=== PATIENT | female | born 1980 | race Caucasian/White ===

== ENCOUNTER 2017-05-01 15:19 | Emergency (ER) | payer OTHER ==
[~2017-05-01] VITALS: Ht 175.3 cm; Wt 158.8 kg
[~2017-05-01 15:19] MED LIST: CEPH500 PO; CRUTCH2 USE; Cyclobenzaprine5 MG PO; FLUC100 PO; HYDACE5 PO; IBUP800 PO; Norco 5-325 Ta1 EACH PO; RXHYDACE PO; SULTRIDS PO; TRAM50 PO
[2017-05-01] MEDS ORDERED: Percocet 5-3251 EACH PO (17:17)
[2017-05-01] MEDS ORDERED: Bactrim Ds Tab1 EACH PO (17:17)
[2017-05-01] MEDS ORDERED: Cyclobenzaprine5 MG PO (17:17)
== END 2017-05-01 17:29 | disposition home or self-care (01) ==
LOC: ER 15:19
DX: M54.5 Low back pain (principal); L03.113 Cellulitis of right upper limb; M25.521 Pain in right elbow; F17.210 Nicotine dependence, cigarettes, uncomplicated; W10.9XXA Fall (on) (from) unspecified stairs and steps, initial encounter
CPT/HCPCS: 72100; 73070; 81025; 99283

== ENCOUNTER → 2017-07-29 | Outpatient (CLI) | payer OTHER ==
[~2017-07-29] MED LIST changes: +Bactrim Ds Tab1 EACH PO; +Percocet 5-3251 EACH PO
== END | disposition home or self-care (01) ==
LOC: LAB EV 11:36 → LAB SHORT 11:36
DX: Z33.1 Pregnant state, incidental (principal)
CPT/HCPCS: 84702

== ENCOUNTER → 2017-08-04 | Outpatient (CLI) | payer OTHER ==
[2017-08-04 16:54] LABS: Alanine Aminotransfer (ALT/SGP 19 U/L (12-78); Albumin, Blood 3.7 g/dL (3.4-5.0); Albumin/Globulin Ratio 1.1 (0.8-1.8); Alk Phos 57 U/L (50-136); Anion Gap 9 mmol/L (6-16); Aspartate Aminotrans (AST/SGOT 7 U/L (12-37); Bilirubin, Total 0.3 mg/dL (0.1-1.0); Blood Urea Nitrogen 8 mg/dL (8-24); Bun/Creatinine Ratio 14.4 (12.0-20.0); CO2, Blood 22 mmol/L (21-32); Calcium, Blood 8.7 mg/dL (8.5-10.1); Chloride, Blood 109 mmol/L (98-108); Creatinine, Blood 0.56 mg/dL (0.40-1.00); Globulin, Blood 3.5 g/dL (2.2-4.0); Glomerular Filtration Rate >60 (60-); Glucose, Blood 181 mg/dL (70-99); Sodium, Blood 140 mmol/L (136-145); Total Protein, Blood 7.2 g/dL (6.4-8.2)
[2017-08-04 17:06] LABS: Beta HCG, Quantitative, Serum 2520 mIU/mL (0-3)
== END ==
LOC: LAB SHORT 14:09 → LAB 14:09
PROVIDERS: Obstetrics & Gynecology
DX: O09.90 Supervision of high risk pregnancy, unspecified, unspecified trimester (principal); I10 Essential (primary) hypertension; E11.9 Type 2 diabetes mellitus without complications; Z33.1 Pregnant state, incidental
CPT/HCPCS: 80053; 83036; 84443; 84702

== ENCOUNTER 2017-09-30 15:26 | Emergency (ER) | payer OTHER ==
[~2017-09-30] VITALS: Ht 175.3 cm; Wt 137.4 kg
[2017-09-30] MEDS ORDERED: IBUP600 PO (17:08)
[2017-09-30] MEDS ORDERED: Bactrim Ds Tab1 EACH PO (17:08)
[2017-09-30] MEDS ORDERED: HYDR1TAB94 PO (17:08)
== END 2017-09-30 17:38 | disposition home or self-care (01) ==
LOC: ER 15:26
DX: S63.501A Unspecified sprain of right wrist, initial encounter (principal); L03.116 Cellulitis of left lower limb; X58.XXXA Exposure to other specified factors, initial encounter; F17.210 Nicotine dependence, cigarettes, uncomplicated
CPT/HCPCS: 29125; 73130; 99283-25

== ENCOUNTER → 2019-04-11 | Outpatient (CLI) | payer OTHER ==
[~2019-04-11] MED LIST changes: +HYDR1TAB94 PO; +IBUP600 PO
[2019-04-12 09:51] LABS: Candida species (DNA Probe) Negative (NEGATIVE); G. vaginalis (DNA Probe) Positive (NEGATIVE); T. vaginalis (DNA Probe) Negative (NEGATIVE)
[2019-04-13 15:09] LABS: HPV 16 Negative (Negative); HPV 18 Negative (Negative); HPV OTHER HR TYPES Negative (Negative)
== END | disposition home or self-care (01) ==
LOC: LAB 10:30 → LAB SHORT 10:30
PROVIDERS: Obstetrics & Gynecology
DX: Z01.419 Encounter for gynecological examination (general) (routine) without abnormal findings (principal); L29.3 Anogenital pruritus, unspecified
CPT/HCPCS: 87480; 87510; 87624; 87660; G0123

== ENCOUNTER → 2019-11-01 | Outpatient (CLI) | payer OTHER ==
[2019-11-02 09:58] LABS: Candida species (DNA Probe) Negative (NEGATIVE); G. vaginalis (DNA Probe) Positive (NEGATIVE); T. vaginalis (DNA Probe) Negative (NEGATIVE)
== END | disposition home or self-care (01) ==
LOC: LAB 08:55 → LAB SHORT 08:55
PROVIDERS: Advanced Practice Midwife
DX: N76.0 Acute vaginitis (principal)
CPT/HCPCS: 87480; 87510; 87660

== ENCOUNTER 2020-02-27 07:48 | Emergency (ER) | payer OTHER ==
[~2020-02-27] VITALS: Ht 175.3 cm; Wt 124.7 kg
[2020-02-27] MEDS ORDERED: HYDR1TAB94 PO (09:33)
[2020-02-27] MEDS ORDERED: CYCL10 PO (09:33)
[2020-02-27] MEDS ORDERED: Mobic15 MG PO (09:33)
== END 2020-02-27 10:03 | disposition home or self-care (01) ==
LOC: ER 07:48
DX: M54.42 Lumbago with sciatica, left side (principal); F17.210 Nicotine dependence, cigarettes, uncomplicated
CPT/HCPCS: 96372; 99283-25; A9270; J1885

== ENCOUNTER 2020-03-18 14:43 | Emergency (ER) | payer OTHER ==
[~2020-03-18] VITALS: Ht 175.3 cm; Wt 124.7 kg
[~2020-03-18 14:43] MED LIST changes: +CYCL10 PO; +Mobic15 MG PO
== END 2020-03-18 18:12 | disposition home or self-care (01) ==
LOC: ER 14:43
DX: M54.42 Lumbago with sciatica, left side (principal); F17.210 Nicotine dependence, cigarettes, uncomplicated
CPT/HCPCS: 72131; 96372; 99283-25; A9270; J1885

== ENCOUNTER 2022-01-25 15:30 | Emergency (ER) | payer OTHER ==
[~2022-01-25] VITALS: Ht 175.3 cm; Wt 124.7 kg
[2022-01-25 16:56] LABS: BASOPHILS ABSOLUTE AUTO 0.05 K/mm3 (0.00-0.23); BASOPHILS PERCENT AUTO 1 % (0-2); EOSINOPHILS ABSOLUTE AUTO 0.06 K/mm3 (0.00-0.68); EOSINOPHILS PERCENT AUTO 1 % (0-6); Hematocrit 41.5 % (33.0-51.0); Hemoglobin 14.6 g/dL (11.5-16.0); IMMATURE GRAN ABSOLUTE AUTO 0.04 K/mm3 (0.00-0.10); IMMATURE GRAN PERCENT AUTO 1 % (0-1); LYMPHOCYTES ABSOLUTE AUTO 2.02 K/mm3 (0.84-5.20); LYMPHOCYTES PERCENT AUTO 25 % (21-46); MONOCYTES ABSOLUTE AUTO 0.46 K/mm3 (0.16-1.47); MONOCYTES PERCENT AUTO 6 % (4-13); Mean Corpuscular HGB 32.3 pg (26.0-34.0); Mean Corpuscular HGB Conc 35.2 g/dL (31.5-36.5); Mean Corpuscular Volume 92 fL (80-100); Mean Platelet Volume 9.4 fL (9.1-12.4); NEUTROPHILS ABSOLUTE AUTO 5.54 K/mm3 (1.96-9.15); NEUTROPHILS PERCENT AUTO 68 % (41-73); Platelet Count 287 K/mm3 (150-400); RDW Coefficient Variation 10.9 % (11.7-14.2); Red Blood Cell Count 4.52 M/mm3 (3.80-5.20); White Blood Cell Count 8.17 K/mm3 (4.00-11.30)
[2022-01-25 17:15] LABS: Albumin, Blood 3.9 g/dL (3.4-5.0); Albumin/Globulin Ratio 1.1 (0.8-1.8); Bilirubin, Total 0.7 mg/dL (0.1-1.0); Bun/Creatinine Ratio 16.7 (12.0-20.0); Calcium, Blood 9.2 mg/dL (8.5-10.1); Creatinine, Blood 0.54 mg/dL (0.40-1.00); Globulin, Blood 3.5 g/dL (2.2-4.0); Total Protein, Blood 7.4 g/dL (6.4-8.2)
== END 2022-01-25 23:18 | disposition home or self-care (01) ==
LOC: ER 15:30
PROVIDERS: Physician Assistant
DX: H49.22 Sixth [abducent] nerve palsy, left eye (principal); R51.9 Headache, unspecified; F17.210 Nicotine dependence, cigarettes, uncomplicated
CPT/HCPCS: 70450; 70481; 70496; 70498; 80053; 84443; 85025; 85651; 86140; 93005; 93010; 99284-25; Q9967

== ENCOUNTER → 2022-05-10 | Outpatient (CLI) | payer OTHER ==
[2022-05-10 14:05] LABS: G. vaginalis (DNA Probe) Positive (NEGATIVE); T. vaginalis (DNA Probe) Negative (NEGATIVE)
[2022-05-10 14:06] LABS: Candida species (DNA Probe) Negative (NEGATIVE)
== END | disposition home or self-care (01) ==
LOC: LAB SHORT 11:29 → LAB 11:29
PROVIDERS: Obstetrics & Gynecology
DX: N76.0 Acute vaginitis (principal)
CPT/HCPCS: 87480; 87510; 87660

== ENCOUNTER → 2022-09-14 | Outpatient (CLI) | payer OTHER ==
[2022-09-16 11:09] LABS: HPV 16 Negative (Negative); HPV 18 Negative (Negative); HPV OTHER HR TYPES Negative (Negative)
== END | disposition home or self-care (01) ==
LOC: LAB 13:39 → LAB SHORT 13:39
PROVIDERS: Obstetrics & Gynecology
DX: Z01.419 Encounter for gynecological examination (general) (routine) without abnormal findings (principal)
CPT/HCPCS: 87624; G0145

== ENCOUNTER → 2024-05-30 | Outpatient (CLI) | payer OTHER | END | disposition home or self-care (01) | LOC: LAB SHORT 09:38 → LAB 09:38 | DX: R30.0 Dysuria (principal) | CPT/HCPCS: 87086 ==

== ENCOUNTER 2024-08-21 10:10 | Emergency (ER) | payer OTHER ==
[~2024-08-21] VITALS: Ht 175.3 cm; Wt 104.3 kg
[2024-08-21 10:18] VITALS: BP 150/106
[2024-08-21 12:10] LABS: Calcium, Ionized (POC) 1.21 mmol/L (1.10-1.46); Chloride (POC) 104 mmol/L (98-108); Creatinine (POC) 0.7 mg/dL (0.6-1.0); Glucose (ISTAT POC) 150 mg/dL (70-99); Hematocrit (POC) 44.0 % (36.0-46.0); Hemoglobin (POC) 15.0 g/dL (12.0-16.0); Potassium (POC) 4.2 mmol/L (3.5-5.5); Sodium (POC) 138 mmol/L (135-148); Total CO2 (POC) 25 mmol/L (21-32)
[2024-08-21 12:13] LABS: BASOPHILS ABSOLUTE AUTO 0.05 K/mm3 (0.00-0.23); BASOPHILS PERCENT AUTO 1 % (0-2); EOSINOPHILS ABSOLUTE AUTO 0.04 K/mm3 (0.00-0.68); EOSINOPHILS PERCENT AUTO 0 % (0-6); Hematocrit 43.2 % (33.0-51.0); Hemoglobin 14.6 g/dL (11.5-16.0); IMMATURE GRAN ABSOLUTE AUTO 0.02 K/mm3 (0.00-0.10); IMMATURE GRAN PERCENT AUTO 0 % (0-1); LYMPHOCYTES ABSOLUTE AUTO 2.11 K/mm3 (0.84-5.20); LYMPHOCYTES PERCENT AUTO 21 % (21-46); MONOCYTES ABSOLUTE AUTO 0.70 K/mm3 (0.16-1.47); MONOCYTES PERCENT AUTO 7 % (4-13); Mean Corpuscular HGB Conc 33.8 g/dL (31.5-36.5); Mean Corpuscular Volume 95 fL (80-100); NEUTROPHILS ABSOLUTE AUTO 7.06 K/mm3 (1.96-9.15); NEUTROPHILS PERCENT AUTO 71 % (41-73); NRBC ABSOLUTE 0.00 K/mm3 (0.00-0.02); NRBC Auto 0.0 /100 WBC (0.0-0.2); Platelet Count 243 K/mm3 (150-400); RDW Coefficient Variation 11.7 % (11.7-14.2); RDW Standard Deviation 40.8 fL (35.1-46.3)
[2024-08-21 13:08] LABS: Alanine Aminotransfer (ALT/SGP 19.0 U/L (12-78); Albumin, Blood 3.9 g/dL (3.4-5.0); Albumin/Globulin Ratio 1.1 (0.8-1.8); Anion Gap 14.0 mmol/L (3-11); Aspartate Aminotrans (AST/SGOT 16.0 U/L (12-37); Bilirubin, Total 0.4 mg/dL (0.1-1.0); Blood Urea Nitrogen 7.0 mg/dL (8-24); CO2, Blood 26.0 mmol/L (21-32); Calcium, Blood 9.5 mg/dL (8.5-10.1); Chloride, Blood 104.0 mmol/L (98-108); Creatinine, Blood 0.72 mg/dL (0.40-1.00); Globulin, Blood 3.6 g/dL (2.2-4.0); Glucose, Blood 148.0 mg/dL (70-99); Potassium, Blood 4.3 mmol/L (3.5-5.5); Sodium, Blood 140.0 mmol/L (136-145); Total Protein, Blood 7.5 g/dL (6.4-8.2)
== END 2024-08-21 12:30 | disposition home or self-care (01) ==
LOC: ER 10:10
PROVIDERS: Emergency Medicine
DX: R55 Syncope and collapse (principal); S00.33XA Contusion of nose, initial encounter; X58.XXXA Exposure to other specified factors, initial encounter; E11.9 Type 2 diabetes mellitus without complications; F17.210 Nicotine dependence, cigarettes, uncomplicated
CPT/HCPCS: 80047; 80053; 83880; 85014; 85025; 93005; 93010; 99284-25

== ENCOUNTER → 2024-10-26 | Outpatient (CLI) | payer OTHER ==
[2024-10-26 16:44] LABS: Bacterial Vaginosis PCR Positive (NEGATIVE); Candida Group, PCR DETECTED (NOT DETECT); Candida glabrata-krusei, PCR DETECTED (NOT DETECT)
== END ==
LOC: LAB SHORT 12:59 → LAB 12:59
PROVIDERS: Family Medicine
DX: N76.0 Acute vaginitis (principal); B96.89 Other specified bacterial agents as the cause of diseases classified elsewhere; R30.0 Dysuria
CPT/HCPCS: 81515; 87086

== ENCOUNTER → 2024-11-23 | Outpatient (CLI) | payer OTHER ==
[2024-11-23 16:42] LABS: Candida Group, PCR NOT DETECTED (NOT DETECT); Candida glabrata-krusei, PCR NOT DETECTED (NOT DETECT)
[2024-11-23 16:43] LABS: Bacterial Vaginosis PCR Positive (NEGATIVE)
== END ==
LOC: LAB SHORT 13:43 → LAB 13:43
PROVIDERS: Family Medicine
DX: N76.1 Subacute and chronic vaginitis (principal)
CPT/HCPCS: 81515